=== PATIENT | female | born 1955 | race Hispanic/Latino ===

== ENCOUNTER 2017-08-06 08:10 | Outpatient (CLI) | payer OTHER ==
--- NOTE | 2017-08-09 11:20 | Mammography Report ---
BILATERAL DIGITAL SCREENING MAMMOGRAM with CAD: 08/06/17 08:10:00 CLINICAL: Routine screening. COMPARISON:08/03/14, 02/10/13 and additional mammograms going back to 2004. FINDINGS: The breasts are heterogeneously dense, which may obscure small masses. Right retroareolar asymmetry on the CC view is slightly change compared to prior mammograms and requires additional imaging.No architectural distortion or suspicious calcifications.The left breast is negative. IMPRESSION: Right asymmetry requiring further workup. BI-RADS CATEGORY: 0 -- Additional Imaging Evaluation Required RECOMMENDATION: Recall for right true lateral and spot magnification CC views and right breast ultrasound if needed. ACR BI-RADS MAMMOGRAPHIC CODES: 0 = Needs additional imaging evaluation; 1 = Negative; 2 = Benign; 3 = Probably benign; 4 = Suspicious; 5 = Malignant; 6 = Known biopsy-proven malignancy COMMENT: 1. Dense breast tissue, i.e., adenosis, fibrocystic changes, etc., may obscure an underlying neoplasm. 2. Approximately 10% of cancers are not detected with mammography. 3. A negative mammography report should not delay biopsy if a clinically suspicious mass is present. COMMENT: Patient follow-up letters are generated via our [employer] application.
== END 2017-08-06 08:11 | disposition home or self-care (01) ==
LOC: SPVWC 08:10
PROVIDERS: ATTEND Family Medicine
DX: Z12.31 Encounter for screening mammogram for malignant neoplasm of breast (principal)
CPT/HCPCS: 77067

== ENCOUNTER 2017-08-18 13:27 | Outpatient (CLI) | payer OTHER ==
--- NOTE | 2017-08-18 16:22 | Ultrasound Report ---
RIGHT DIGITAL DIAGNOSTIC MAMMOGRAM and RIGHT BREAST ULTRASOUND: 08/18/17 13:27:00 CLINICAL: Recalled for asymmetry. COMPARISON:08/06/17 screening FINDINGS: Lateralmedial and spot magnification LM, MLO and CC views were performed. Partial effacement of the retroareolar asymmetry. A few scattered punctate calcifications are identified within and outside of the asymmetry. Ultrasound of the right breast (including all four quadrants and the retroareolar area) was performed and demonstrated an irregular hypoechoic shadowing retroareolar mass at 12 o'clock. It measures approximately 2.7 x 2.0 x 1.5 cm and correlates with mammographic asymmetry. No other mass identified. Ultrasound of the right axilla demonstrated no suspicious lymph node. IMPRESSION: A 2.7 cm right retroareolar mass. BI-RADS CATEGORY: 4--Suspicious RECOMMENDATION: Ultrasound guided needle core biopsy of the right breast. I discussed the findings and the recommendation (for a needle core biopsy of the right breast) with the patient at the time of the examination. ACR BI-RADS MAMMOGRAPHIC CODES: 0 = Needs additional imaging evaluation; 1 = Negative; 2 = Benign; 3 = Probably benign; 4 = Suspicious; 5 = Malignant; 6 = Known biopsy-proven malignancy COMMENT: 1. Dense breast tissue, i.e., adenosis, fibrocystic changes, etc., may obscure an underlying neoplasm. 2. Approximately 10% of cancers are not detected with mammography. 3. A negative mammography report should not delay biopsy if a clinically suspicious mass is present. COMMENT: Patient follow-up letters are generated via our [employer] application.
== END 2017-08-18 13:28 | disposition home or self-care (01) ==
LOC: SPVWC 13:27
PROVIDERS: ATTEND Family Medicine
DX: N63.10 Unspecified lump in the right breast, unspecified quadrant (principal); R92.8 Other abnormal and inconclusive findings on diagnostic imaging of breast

== ENCOUNTER 2017-08-31 10:26 | Outpatient (CLI) | payer OTHER ==
--- NOTE | 2017-08-31 14:31 | Ultrasound Report ---
ULTRASOUND GUIDED NEEDLE CORE BIOPSY RIGHT BREAST WITH CLIP PLACEMENT: 08/31/17 CLINICAL: Right retroareolar breast mass. COMPARISON :08/18/17 FINDINGS: The procedure was explained to the patient and informed consent was obtained. Ultrasound demonstrated the previously described retroareolar mass at 12 o'clock.. I marked the breast with a felt tip marker and a time out was called. The skin was prepped with Betadine and anesthetized with 1% lidocaine. Needle core biopsy was performed through a tiny dermatotomy using ultrasound guidance, 2% lidocaine with epinephrine for deep anesthesia and a 14-gauge Achieve biopsy device. 4 cores were obtained and placed in formalin. A clip was deployed within the mass. The patient tolerated the procedure well and there were no apparent complications. Hemostasis was achieved with minimal pressure and a sterile dressing was applied. A two view mammogram demonstrated concordant placement of the clip. She left the department in good condition and was given instructions for wound care and followup. IMPRESSION: Uncomplicated ultrasound guided needle core biopsy with clip placement right breast.
--- NOTE | 2017-08-31 14:32 | Mammography Report ---
RIGHT DIGITAL DIAGNOSTIC MAMMOGRAM: 08/31/17 10:26:00 CLINICAL: For clip placement status post ultrasound biopsy. COMPARISON:08/18/17 FINDINGS: A retroareolar biopsy clip is now identified and correlates with the previously described mammographic asymmetry. IMPRESSION: Concordant clip placement status post ultrasound biopsy. BI-RADS CATEGORY: 4--Suspicious Pathology pending.
== END 2017-08-31 10:27 | disposition home or self-care (01) ==
LOC: SPVWC 10:26
PROVIDERS: ATTEND Family Medicine
DX: N63.10 Unspecified lump in the right breast, unspecified quadrant (principal)
CPT/HCPCS: 88305